=== PATIENT | male | born 1980 | race Caucasian/White ===

== ENCOUNTER 2019-12-19 09:42 | Emergency (ER) | payer SELFPAY ==
[~2019-12-19] VITALS: Ht 177.8 cm; Wt 81.8 kg
[2019-12-19 09:54] VITALS: BP 133/90; Ht 177.8 cm; Wt 81.8 kg
[2019-12-19] MEDS ORDERED: BUPRENORPHIN-N1 EACH SL (09:57)
[2019-12-19] MEDS ORDERED: TRAZODONE HCL300 MG PO (09:57)
[2019-12-19 10:14] LABS: BILIRUBIN NEGATIVE (NEGATIVE); KETONE NEGATIVE (NEGATIVE); NITRITE NEGATIVE (NEGATIVE); UROBILINOGEN NORMAL mg/dL (< 2)
[2019-12-19 10:22] LABS: BASOPHILS 0.3 % (0-2); EOSINOPHILS 1.1 % (0-7); HEMATOCRIT 38.6 % (42.0-54.0); HEMOGLOBIN 13.1 g/dL (13.5-17.5); IMMATURE GRANULOCYTES 0.1 % (0-5); LYMPHOCYTES 18.5 % (15-50); MCH 28.6 pg (26.0-34.0); MCHC 33.9 g/dL (31.0-37.0); MCV 84.3 fL (80.0-100.0); MEAN PLATELET VOLUME 9.2 fL (7.4-10.4); MONOCYTES 7.7 % (2-11); NEUTROPHILS 72.3 % (40-80); PLATELET COUNT 188 10x3/uL (130-400); RBC 4.58 10x6/uL (4.20-6.10); RDW 12.2 % (11.5-14.5); WBC 7.9 10x3/uL (4.8-10.8)
[2019-12-19 10:29] LABS: UDS - AMPHET POSITIVE QUAL (NEGATIVE); UDS - BARB NEGATIVE QUAL (NEGATIVE); UDS - BENZO POSITIVE QUAL (NEGATIVE); UDS - COCAINE NEGATIVE QUAL (NEGATIVE); UDS - OPIATE NEGATIVE QUAL (NEGATIVE); UDS - PCP NEGATIVE QUAL (NEGATIVE); UDS - THC NEGATIVE QUAL (NEGATIVE)
[2019-12-19 10:34] LABS: CALC OSMOLALITY 277 mosm/kg (275-300); CALCIUM 9.2 mg/dL (8.5-10.1); CARBON DIOXIDE 31.1 mmol/L (21.0-32.0); CHLORIDE - SERUM 104 mmol/L (98-107); GLUCOSE 107 mg/dL (74-106); POTASSIUM - SERUM 4.1 mmol/L (3.5-5.1); SODIUM 138 mmol/L (136-145); UREA NITROGEN 17 mg/dL (7-18); eGFR NON AFRICAN AMERICAN 88 mL/min (90-120)
[2019-12-19 10:41] LABS: ALBUMIN 3.9 g/dL (3.4-5.0); ALKALINE PHOSPHATASE 60 U/L (30-120); ALT (SGPT) 25 U/L (10-68); BILIRUBIN - TOTAL 0.53 mg/dL (0.2-1.3); MAGNESIUM - SERUM 1.9 mg/dL (1.8-2.4); PROTEIN - SERUM 7.3 g/dL (6.4-8.2)
[2019-12-19] MEDS ORDERED: AUGMENTIN 875-11 TAB PO (10:51)
== END 2019-12-19 11:17 | disposition home or self-care (01) ==
LOC: D.ER 09:42
PROVIDERS: Family Medicine
DX: S00.31XA Abrasion of nose, initial encounter (principal)